=== PATIENT | female | born 1975 | race Caucasian/White ===

== ENCOUNTER → 2017-10-19 | Outpatient (CLI) | payer OTHER ==
[2017-10-19 18:22] LABS: BASOPHILS ABSOLUTE AUTO 0.03 K/mm3 (0.00-0.23); BASOPHILS PERCENT AUTO 0 % (0-2); EOSINOPHILS ABSOLUTE AUTO 0.07 K/mm3 (0.00-0.68); EOSINOPHILS PERCENT AUTO 1 % (0-6); Hematocrit 34.2 % (33.0-51.0); Hemoglobin 11.7 g/dL (11.5-16.0); IMMATURE GRAN ABSOLUTE AUTO 0.01 K/mm3 (0.00-0.10); IMMATURE GRAN PERCENT AUTO 0 % (0-1); LYMPHOCYTES ABSOLUTE AUTO 2.86 K/mm3 (0.84-5.20); LYMPHOCYTES PERCENT AUTO 42 % (21-46); MONOCYTES ABSOLUTE AUTO 0.47 K/mm3 (0.16-1.47); MONOCYTES PERCENT AUTO 7 % (4-13); Mean Corpuscular HGB 31.6 pg (26.0-34.0); Mean Corpuscular HGB Conc 34.2 g/dL (31.5-36.5); Mean Corpuscular Volume 92 fL (80-100); Mean Platelet Volume 10.9 fL (9.1-12.4); NEUTROPHILS PERCENT AUTO 49 % (41-73); Platelet Count 238 K/mm3 (150-400); RDW Coefficient Variation 13.6 % (11.7-14.2); RDW Standard Deviation 46.7 fL (35.1-46.3); White Blood Cell Count 6.74 K/mm3 (4.00-11.30)
[2017-10-19 18:50] LABS: Alanine Aminotransfer (ALT/SGP 20 U/L (12-78); Albumin, Blood 4.1 g/dL (3.4-5.0); Albumin/Globulin Ratio 1.2 (0.8-1.8); Alk Phos 73 U/L (40-126); Anion Gap 9 mmol/L (6-16); Aspartate Aminotrans (AST/SGOT 20 U/L (12-37); Bilirubin, Total 0.4 mg/dL (0.1-1.0); Blood Urea Nitrogen 14 mg/dL (8-24); Bun/Creatinine Ratio 17.9 (12.0-20.0); CO2, Blood 26 mmol/L (21-32); Calcium, Blood 9.3 mg/dL (8.5-10.1); Chloride, Blood 105 mmol/L (98-108); Creatinine, Blood 0.78 mg/dL (0.40-1.00); Globulin, Blood 3.4 g/dL (2.2-4.0); Glomerular Filtration Rate >60 (60-); Glucose, Blood 92 mg/dL (70-99); Potassium, Blood 3.9 mmol/L (3.5-5.5); Sodium, Blood 140 mmol/L (136-145); Thyroid Stimulating Hormone 1.379 uIU/mL (0.360-4.800); Total Protein, Blood 7.5 g/dL (6.4-8.2)
[2017-10-19 19:41] LABS: International Normalized Ratio 1.01; Prothrombin Time Results 10.4 Sec (9.7-11.5)
== END | disposition home or self-care (01) ==
LOC: LAB EV 18:18 → LAB SHORT 18:18
PROVIDERS: Physician Assistant Medical
DX: N92.1 Excessive and frequent menstruation with irregular cycle (principal)
CPT/HCPCS: 80053; 84443; 85025; 85610

== ENCOUNTER → 2017-12-07 | Outpatient (CLI) | payer OTHER | END | disposition home or self-care (01) | LOC: LAB SHORT 12:42 → PLD 12:42 | DX: N92.0 Excessive and frequent menstruation with regular cycle (principal) | CPT/HCPCS: 88305 ==

== ENCOUNTER → 2019-09-19 | Outpatient (CLI) | payer OTHER | LOC: LAB 18:48 → LAB SHORT 18:48 | PROVIDERS: Nurse Practitioner Family | DX: Z01.419 Encounter for gynecological examination (general) (routine) without abnormal findings (principal) | CPT/HCPCS: G0145 ==

== ENCOUNTER 2020-10-18 20:47 | Emergency (ER) | payer OTHER ==
[~2020-10-18] VITALS: Ht 165.1 cm; Wt 66.2 kg
== END 2020-10-18 22:20 | disposition home or self-care (01) ==
LOC: ER 20:47
DX: S51.812A Laceration without foreign body of left forearm, initial encounter (principal); W01.118A Fall on same level from slipping, tripping and stumbling with subsequent striking against other sharp object, initial encounter; Y93.K1 Activity, walking an animal
CPT/HCPCS: 12002; 73090; 99282-25

== ENCOUNTER → 2021-02-23 | Outpatient (CLI) | payer OTHER ==
[2021-02-24 17:07] LABS: HPV 16 Negative (Negative); HPV 18 Negative (Negative); HPV OTHER HR TYPES Negative (Negative)
== END | disposition home or self-care (01) ==
LOC: LAB SHORT 15:39 → LAB 15:39
PROVIDERS: Obstetrics & Gynecology
DX: Z01.419 Encounter for gynecological examination (general) (routine) without abnormal findings (principal)
CPT/HCPCS: 87624; G0123

== ENCOUNTER → 2023-03-25 | Outpatient (CLI) | payer OTHER ==
[2023-03-25 13:18] LABS: Source, Urine Voided
[2023-03-25 15:25] LABS: Appearance, Urine Clear (Clear); Bilirubin, Urine Neg (Neg); Blood, Urine 1+ (Neg); Color, Urine Yellow (P-Yellow); Glucose Qualitative, Urine Neg (Neg); Ketones, Urine Neg (Neg); Leukocyte Esterase, Urine Neg (Neg); Nitrite, Urine Neg (Neg); Protein, Urine Neg (Neg); Specific Gravity, Urine 1.015 (1.003-1.022); Urobilinogen, Urine NORM (Normal)
[2023-03-25 15:40] LABS: Bacteria Rare /hpf; Red Blood Cells, Urine 0-2 /hpf (0-2); Squamous Epithelial Cells Rare /hpf (Few); White Blood Cells, Urine 0-2 /hpf (0-5)
== END ==
LOC: LAB SHORT 13:14 → LAB 13:14
PROVIDERS: Obstetrics & Gynecology
DX: Z01.818 Encounter for other preprocedural examination (principal)
CPT/HCPCS: 81001

== ENCOUNTER 2023-03-30 06:09 | Day surgery (SDC) | payer OTHER ==
[~2023-03-30] VITALS: Ht 164 cm; Wt 62.0 kg
[2023-03-30] VITALS (15 sets, daily range): BP systolic 104–143; BP diastolic 67–90
--- NOTE | 2023-03-30 11:45 | NUR ---
ARRIVAL TO SURGICAL UNIT VIA GOURNEY. SLID OVER TO HOSPITAL BED. REQUESTS LIGHTS OFF. ABD SOFT, FLAT w/ LAP SITES x 4 COVERED w/ WOUND GLUE. NO DRNG NOTED. LUNGS CLEAR. RESP UNLABORED. HRR. STATES NAUSEA IS BETTER BUT DECLINES SIPS OF WATER OR ICE CHIPS. C/O ABD PAIN. WARM BLANKETS GIVEN & WILL MEDICATE.
--- NOTE | 2023-03-30 17:00 | NUR ---
JR GRIMES'lavonne AT THIS TIME.
--- NOTE | 2023-03-30 19:55 | NUR ---
SHIFT SUMMARY PT HAS BEEN STRUGGLING w/ LINGERING INTERMITTENT NAUSEA & DIZZINESS, BUT HAS BEEN SIPPING ON WATER & TAKING BITES. NO VOID SINCE JR DC'd BUT URINE WAS DARK. HAS BEEN UP OOB TWICE.
[2023-03-31 00:41] VITALS: BP 133/81
[2023-03-31 03:13] VITALS: BP 104/69
--- NOTE | 2023-03-31 06:23 | NUR ---
POD 1 S/P LAVH. PT VSS. INCISIONS CDI. PT HAVING SMALL AMT VAGINAL BLEEDING; ROSARIO PAD CHANGED X1. PT HAD 1 EPISODE OF N/V AFTER PAIN MEDS. MEDICATED W/ZOFRAN W/REP RELIEF. ANTI NAUSEA MEDS GIVEN W/PAIN MEDS, PT SARA BETTER, WAS ABLE TO SARA SM AMT PO. PT REP NO FLATUS YET. PT VOIDING URINE W/O DIFFCULTY, PVR BLADDER SCAN <50. PT AMB INDEP IN ROOM, SARA WELL. PLAN TO DC HOME TODAY.
[2023-03-31 07:16] VITALS: BP 107/76
== END 2023-03-31 11:48 | disposition home or self-care (01) ==
LOC: SURS 06:09 → ORSCMMR 06:09 → ORD 07:30 → SURS 11:29 → ORSCMMR 03-31 11:48
PROVIDERS: Obstetrics & Gynecology
PROC: 8E0W3CZ Robotic Assisted Procedure of Trunk Region, Percutaneous Approach (ICD-10-PCS; principal; 2023-03-30 07:30)
PROC: 0JQC3ZZ Repair Pelvic Region Subcutaneous Tissue and Fascia, Percutaneous Approach (ICD-10-PCS; principal; 2023-03-30 07:30)
PROC: 0UT94ZZ Resection of Uterus, Percutaneous Endoscopic Approach (ICD-10-PCS; principal; 2023-03-30 07:30)
DX: N81.89 Other female genital prolapse (principal); N81.4 Uterovaginal prolapse, unspecified; F41.9 Anxiety disorder, unspecified
CPT/HCPCS: 86850; 86900; 86901; 88307; A9270; J0690; J1100; J1170; J1885; J2250; J2405; J2704; J2765; J3010; J7120